=== PATIENT | female | born 1955 | race Caucasian/White ===

== ENCOUNTER 2016-10-19 12:14 | Inpatient (IN) | payer OTHER ==
--- NOTE | ~2016-10-19 | HP ---
Unit #: [id number] #: [id number] Patient: SVETLANA HEDRICK [id number] [address] [place], [place] [address] [id number] I MR#: [id number] NAME: SVETLANA HEDRICK ROOM: 236 Age: 61 Sex: F Admission Date: 10/19/2016 : 1955 Attending Physician: Tamiko Chirinos M.D. Primary Care Physician: Isidro Pro M.D. HISTORY AND PHYSICAL HISTORY OF PRESENT ILLNESS This is a 60-year-old lady last seen in August of 2015. Patient has a history of COPD and possible cystic fibrosis and possible bronchiectasis. Patient presented today with cough productive of clear sputum. She has got some interstitial changes of the lung and she also has right upper lobe infiltrates on the chest x-ray. Cough is productive of clear sputum. Patient is increasingly fatigued and so she presented to the hospital when she started quite poorly now. The EKG shows normal sinus rhythm. Lactic acid was 1.6. Therefore, she is being admitted for pneumonia. REVIEW OF SYSTEMS The review of systems is as per the history of present illness. PAST MEDICAL HISTORY Patient's past medical history is significant for questionable history of cystic fibrosis, chronic bronchitis, recurrent pneumonia, and degenerative lumbar disk disease. PAST SURGICAL HISTORY Significant for steroid injections. SOCIAL HISTORY Patient is a smoker. Quit about a year ago. Patient lives at home with her . No known polysubstance use. Patient does use prescribed chronic pain medication. FAMILY HISTORY Noncontributory. ALLERGIES Patient is allergic to NSAIDs and morphine. MEDICATIONS Home medications include: 1. Fluoxetine 40 mg twice daily. 2. Wellbutrin 150 mg daily. 3. KlonoPIN 2 mg 3 times a day. 4. Opana 10 mg 4 times daily. 5. Oxymorphone 20 mg q.a.m. and 10 mg q.h.s. 6. Flexeril 250 mg p.o. daily. PHYSICAL EXAMINATION VITAL SIGNS: T. current 97.9, pulse 82, respiratory rate 16, blood pressure 139/64, and satting 95% on 3 liters nasal cannula. Ins and outs Unit #: [id number] #: [id number] Patient: RYLEY,SVETLANA KEYLA not recorded. HEENT: Extraocular movements are intact. CHEST: Shows decreased wheezes bilaterally. NECK: Shows mild accessory muscle use. No JVD. ABDOMEN: Soft, nontender, and nondistended. EXTREMITIES: Show some edema, trace. DIAGNOSTIC STUDIES LABORATORY: The lactic acid is 1.3. Basic metabolic panel significant for elevated bili at 1.2, normal liver function tests, BUN and creatinine 7 and 0.7, glucose of 177, potassium of 3.1, and chloride of 92. White count of 12 and platelets of 157. Flu swab is negative. Cardiac enzymes negative x1. IMAGING: Chest x-ray shows chronic interstitial lung disease with right upper lobe density, which may be pneumonia. ASSESSMENT AND PLAN 1. COPD. Continue treatment with scheduled nebs. We are not going to do systemic steroids. We are going to do Pulmicort. We are going to try to get nasal swab, try to get sputum culture and see if we can find the cause of the infection. Patient denies any sort of sick contacts. 2. Chronic pain. Will restart patient's home medications. 3. Bronchiectasis. Will do scheduled nebs. If we are having difficulty expectorating, may need 3% saline nebs. Dictated by Jose G Rubi/eddie TD: 10/20/2016 06:50 JOB #: [id number] HISTORY AND PHYSICAL Page 1 of 1 X Kwasi Chirinos MD X HISTORY AND PHYSICAL
--- NOTE | ~2016-10-19 | DS ---
Unit #: [id number] #: [id number] Patient: SVETLANA HEDRICK [id number] [address] [address] [id number] I MR#: [id number] NAME: SVETLANA HEDRICK ROOM: 236 Age: 61 Sex: F Admission Date: 10/19/2016 : 1955 Discharge Date: 10/22/2016 Attending Physician: Tamiko Chirinos M.D. Primary Care Physician: Isidro Pro M.D. DISCHARGE SUMMARY ADMISSION DIAGNOSES 1. Flu. 2. Pneumonitis. 3. History of chronic obstructive pulmonary disease. 4. History of interstitial lung disease. The patient states that she appears to have some mild bronchiectasis. The patient presented with cough with productive sputum, increasing dyspnea, increasing fatigue, increasing oxygen requirements. The patient has a history of A-fib but is in sinus rhythm. Therefore, she was admitted for treatment. HOSPITAL COURSE Chronic obstructive pulmonary disease exacerbation with probable pneumonia: The patient was placed on azithromycin and Rocephin. The patient is improved, switched to Omnicef and oral azithromycin to finish course. Nasal viral swab shows flu: Patient placed on five days, 75 mg b.i.d. of oseltamivir. Interstitial lung disease: The patient has not had a recent CT. We will try to re-order a CT scan done here in the next week or so. The patient is to follow up with [facility]. Glucoses appear stable. Dietary as tolerated. Activity as tolerated. Thank you for allowing us to participate in the care of this patient. Dictated by... Jose G Rubi/anni TD: 10/24/2016 07:42 JOB #: [id number] Unit #: [id number] #: [id number] Patient: SVETLANA HEDRICK DISCHARGE SUMMARY Page 1 of 1 X Kwasi Chirinos MD X DISCHARGE SUMMARY
--- NOTE | ~2016-10-19 | EKG ---
PATIENT: SVETLANA HEDRICK UNIT #: [id number] Ventricular Rate: 89 BPM Atrial Rate: 89 BPM P-R Interval: 142 ms QRS Duration: 94 ms Q-T Interval: 388 ms QTC Calculation(Bezet): 472 ms P [place]: 57 degrees Calculated R [place]: -6 degrees Calculated T [place]: 48 degrees Diagnosis Line: Normal sinus rhythm Diagnosis Line: Minimal voltage criteria for LVH, may be normal Diagnosis Line: variant Diagnosis Line: Borderline ECG Diagnosis Line: When compared with ECG of 14-AUG-2015 18:17, Diagnosis Line: T wave inversion no longer evident in Inferior Diagnosis Line: leads Diagnosis Line: Nonspecific T wave abnormality no longer evident Diagnosis Line: in Anterolateral leads Diagnosis Line: Confirmed by ANGLE ABRAHAM MD ([id number]) on Diagnosis Line: 10/20/2016 4:27:34 PM INTERPRETING MD: LEIGH ANGELES
--- NOTE | ~2016-10-19 | DS ---
Unit #: [id number] #: [id number] Patient: SVETLANA HEDRICK [id number] [address] [address] [id number] I MR#: [id number] NAME: SVETLANA HEDRICK ROOM: 236 Age: 61 Sex: F Admission Date: 10/19/2016 : 1955 Discharge Date: 10/22/2016 Attending Physician: Tamiko Chirinos M.D. Primary Care Physician: Isidro Pro M.D. DISCHARGE SUMMARY ADDENDUM ADMITTING DIAGNOSES 1. Flu pneumonitis. 2. Probable community-acquired pneumonia. DISCHARGE MEDICATIONS 1. Combivent every four hours or four times a day neb. 2. Pulmicort 0.25 mg neb twice a day. 3. Flonase, one spray each nostril twice a day. 4. Bupropion 150 mg daily. 5. Fluoxetine 40 mg twice a day. 6. Nystatin 5 mg every six hours for ten days. 7. Tessalon Perles 200 mg three times daily. 8. Oseltamivir 75 mg twice daily. 9. Azithromycin 250 mg x3 day. 10. Roxicodone 10 mg every six hours p.r.n. pain. 11. Opana 10 mg p.o. q.i.d. 12. Oxymorphone 20 mg in the morning p.r.n., 10 mg in the evening p.r.n. 13. Methocarbamol 250 mg daily. Dictated by... Jose G Rubi/anni TD: 10/24/2016 07:49 JOB #: [id number] DISCHARGE SUMMARY Page 1 of 1 X Kwasi Chirinos MD X DISCHARGE SUMMARY
--- NOTE | ~2016-10-19 | CR72 ---
[facility] A Service of [facility] RADIOLOGY TEXT RESULTS PATIENT: SVETLANA HEDRICK LOCATION: [facility] : [birth year] UNIT #: [id number] AGE: [address]: Fausto Fritz MD SEX: F ORDER DR: [id number] [facility] [address] [facility]. [place], [place] [address] [id number] MR#: [id number] Acc #: [id number] NAME: SVETLANA HEDRICK : 1955 SEX: F STUDY DATE/TIME: 10/19/2016 UNIT: [facility] ROOM: STUDY DESCRIPTION: CR Chest Single View Portable Attending Physician: Fausto Fritz M.D. Ordering Physician: Fausto Fritz M.D. Primary Care Physician: No Primary Care Physician MEDICAL IMAGING REPORT This report is preliminary unless electronic signature is present EXAM Chest portable 10/19/2016 1331 hours HISTORY 61-year-old woman with shortness of air, fever and cough for 5 days. COMPARISON 08/16/2015 FINDINGS Portable upright film demonstrates normal heart size. There is bilateral hilar fullness, right greater than left, unchanged. The patient has known chronic underlying interstitial change. There is patchy airspace density suggested in the lateral right upper chest. This is been intermittently present on prior studies and is concerning for superimposed infection. No definite effusions. IMPRESSION Patient has known chronic interstitial lung disease with suggestion of patchy increase in density in the right upper lung. This could represent superimposed pneumonia or edema. No definite effusion. STAT * RESULT Dictated by... Addie Ruelas M.D. THIS IS AN ELECTRONICALLY VERIFIED REPORT Addie Ruelas M.D. at 10/19/2016 2:26 PM ANKUR/charo [facility] A Service of [facility] RADIOLOGY TEXT RESULTS PATIENT: SVETLANA HEDRICK LOCATION: [facility] : [birth year] UNIT #: [id number] AGE: [address]: Fausto Fritz MD SEX: F ORDER DR: TD: 10/19/2016 13:52 JOB #: [id number] MEDICAL IMAGING REPORT Page 1 of 1 COPY
[~2016-10-19 12:14] MED LIST: BACTRIM DS TABL1 TA1 PO; BENZONATATE PO; DIAZEPAM PO; FLONASE 0.05% N16 G1; FLUCONAZOLE200 M1 PO; GRALISE600 MG PO; KLONOPIN PO; KLONOPIN1 MG PO; KLONOPIN2 MG PO; NYSTATIN5 ML PO; OMNICEF300 MG PO; OPANA ER10 M1 PO; OPANA10 MG PO; OXYCODONE HCL15 MG PO; OXYCONTIN PO; PERCOCET10 PO; PHENERGAN12.5 MG PO; PREDNISONE10 MG/DOSE PO; PROZAC PO; PROZAC40 MG PO; WELLBUTRIN PO; WELLBUTRIN XL150 M1 PO; ZITHROMAX600 MG PO; ZOLOFT
[2016-10-19 13:48] LABS: POC - CKMB <1.0 ng/mL (0.0-7.9); POC - TROPONIN <0.05 ng/mL (<=0.05)
[2016-10-19] MEDS ORDERED: FLUOXETINE HCL40 M1 PO (13:55)
[2016-10-19] MEDS ORDERED: WELLBUTRIN SR150 M1 PO (13:56)
[2016-10-19] MEDS ORDERED: CLONAZEPAM2 MG PO (14:00)
[2016-10-19] MEDS ORDERED: OPANA10 MG PO (14:01)
[2016-10-19] MEDS ORDERED: OXYMORPHONE HCL20 MG PO (14:01)
[2016-10-19] MEDS ORDERED: OXYMORPHONE HCL10 M1 PO (14:02)
[2016-10-19] MEDS ORDERED: ROBAXIN PO (14:02)
[2016-10-19 14:04] LABS: BASOPHIL% 0.2 % (0-2.5); EOSINOPHIL# 0.1 X10e3 (0-0.7); EOSINOPHIL% 0.9 % (0.0-7.0); HEMATOCRIT 38.9 % (35.0-45.0); HEMOGLOBIN 12.7 gm/dL (12.0-16.0); LYMPHOCYTE% 8.1 % (17.0-45.0); MEAN CELL VOLUME 90.7 FL (83-96); MEAN CORPUSCULAR HEMOGLOBIN 29.6 PG (28-34); MEAN CORPUSCULAR HGB CONC 32.6 g/dL (30-36); MEAN PLATELET VOLUME 8.1 FL (6.5-11.5); MONOCYTE# 0.4 X10e3 (0-1.0); MONOCYTE% 3.3 % (3.0-12.0); NEUTROPHIL# 10.5 X10e3 (1.5-7.1); NEUTROPHIL% 87.5 % (40-75); PLATELET COUNT 157 X10e3 (140-420); RED BLOOD COUNT 4.29 X10e (3.90-5.30); RED CELL DISTRIBUTION WIDTH 13.4 % (11.0-15.5)
[2016-10-19 14:08] LABS: DIFF IND NO
[2016-10-19 14:26] LABS: INFLUENZA A NEG (NEG); INFLUENZA B NEG (NEG)
[2016-10-19 14:51] LABS: ALBUMIN SERUM 3.8 g/dL (3.5-5.0); BILIRUBIN, DIRECT 0.4 mg/dL (0.0-0.2); BILIRUBIN,INDIRECT 0.8 mg/dL (0.0-0.9); BILIRUBIN,TOTAL 1.2 mg/dL (0.2-2.0); CALCIUM SERUM 8.2 mg/dL (8.4-10.2); CREATININE SERUM 0.7 mg/dL (0.6-1.4); GLOM FILT RATE Estimated 92.2 mL/min (>60); POTASSIUM 3.1 mmol/L (3.5-5.1); PROTEIN TOTAL SERUM 7.4 g/dL (6.0-8.3)
[2016-10-20 14:26] LABS: BASOPHIL% 0.1 % (0-2.5); HEMOGLOBIN 12.6 gm/dL (12.0-16.0); LYMPHOCYTE# 1.3 X10e3 (1.0-3.5); LYMPHOCYTE% 9.7 % (17.0-45.0); MEAN CORPUSCULAR HEMOGLOBIN 29.4 PG (28-34); MEAN CORPUSCULAR HGB CONC 32.3 g/dL (30-36); MONOCYTE# 0.7 X10e3 (0-1.0); NEUTROPHIL# 11.3 X10e3 (1.5-7.1); NEUTROPHIL% 85.2 % (40-75); PLATELET COUNT 189 X10e3 (140-420); RED BLOOD COUNT 4.29 X10e (3.90-5.30); RED CELL DISTRIBUTION WIDTH 13.5 % (11.0-15.5); WHITE BLOOD COUNT 13.3 X10e3 (4.0-10.5)
[2016-10-20 14:31] LABS: DIFF IND NO
[2016-10-20 15:07] LABS: CALCIUM SERUM 8.7 mg/dL (8.4-10.2); CREATININE SERUM 0.6 mg/dL (0.6-1.4); MAGNESIUM 2.2 mg/dL (1.6-3.0); PHOSPHOROUS 3.4 mg/dL (2.5-4.6); POTASSIUM 4.1 mmol/L (3.5-5.1)
[2016-10-21 05:15] LABS: HEMATOCRIT 37.1 % (35.0-45.0); MEAN CELL VOLUME 90.7 FL (83-96); MEAN CORPUSCULAR HEMOGLOBIN 29.3 PG (28-34); MEAN CORPUSCULAR HGB CONC 32.3 g/dL (30-36); MEAN PLATELET VOLUME 8.2 FL (6.5-11.5); RED BLOOD COUNT 4.08 X10e (3.90-5.30); RED CELL DISTRIBUTION WIDTH 13.6 % (11.0-15.5); WHITE BLOOD COUNT 9.2 X10e3 (4.0-10.5)
[2016-10-21 06:39] LABS: ALBUMIN SERUM 3.4 g/dL (3.5-5.0); BILIRUBIN,TOTAL 0.4 mg/dL (0.2-2.0); BUN/CREATININE RATIO 16.25; CALCIUM SERUM 8.3 mg/dL (8.4-10.2); CREATININE SERUM 0.8 mg/dL (0.6-1.4); GLOM FILT RATE Estimated 78.5 mL/min (>60); POTASSIUM 3.5 mmol/L (3.5-5.1); PROTEIN TOTAL SERUM 6.7 g/dL (6.0-8.3)
[2016-10-22 07:34] LABS: ALBUMIN SERUM 3.1 g/dL (3.5-5.0); BILIRUBIN,TOTAL 0.6 mg/dL (0.2-2.0); BUN/CREATININE RATIO 8.57; CALCIUM SERUM 8.4 mg/dL (8.4-10.2); CREATININE SERUM 0.7 mg/dL (0.6-1.4); GLOM FILT RATE Estimated 92.2 mL/min (>60); POTASSIUM 3.7 mmol/L (3.5-5.1); PROTEIN TOTAL SERUM 6.1 g/dL (6.0-8.3)
[2016-10-22] MEDS ORDERED: OMNICEF300 MG PO (19:17)
[2016-10-22] MEDS ORDERED: TAMIFLU75 M1 PO (19:18)
[2016-10-22] MEDS ORDERED: AZITHROMYCIN250 MG PO (19:18)
[2016-10-22] MEDS ORDERED: BENZONATATE PO (19:19)
[2016-10-22] MEDS ORDERED: NILSTAT PO (19:20)
[2016-10-22] MEDS ORDERED: FLONASE ALLERG9.9 ML (19:21)
[2016-10-22] MEDS ORDERED: BUDESONIDE0.5 MG/2 M INH (19:22)
[2016-10-22] MEDS ORDERED: COMBIVENT U/D3 M1 INH (19:23)
[2016-11-21] MEDS ORDERED: OPANA ER10 M1 PO (14:47)
[2016-11-21] MEDS ORDERED: MELATONIN10 M1 PO (14:49)
[2016-11-21] MEDS ORDERED: KLONOPIN2 MG PO (14:49)
== END 2016-10-22 19:43 | disposition home or self-care (01) | DRG 189 ==
LOC: CED 12:14 → CEDOF 16:00 → CED 16:52 → CEDOF 16:52 → C2A 20:02
PROVIDERS: Emergency Medicine; Internal Medicine Pulmonary Disease
DX: J96.20 Acute and chronic respiratory failure, unspecified whether with hypoxia or hypercapnia (principal); E84.9 Cystic fibrosis, unspecified; J11.00 Influenza due to unidentified influenza virus with unspecified type of pneumonia; J18.9 Pneumonia, unspecified organism; I48.91 Unspecified atrial fibrillation; J44.1 Chronic obstructive pulmonary disease with (acute) exacerbation; J44.0 Chronic obstructive pulmonary disease with (acute) lower respiratory infection; M51.36 Other intervertebral disc degeneration, lumbar region; Z87.891 Personal history of nicotine dependence; G89.29 Other chronic pain; Z87.01 Personal history of pneumonia (recurrent)
CPT/HCPCS: 36415; 71010; 80048; 80053; 80076; 82308; 82553; 82947; 83605; 83735; 84100; 84484; 85025; 85027; 87040; 87070; 87077; 87186; 87205; 87449; 87633; 87804; 93005; 94640; 94760; 96374; 97161; 99285; G8978-GP; G8979-GP; G8980-GP; J0456; J0696; J1650; J2405; J2930

== ENCOUNTER → 2016-11-22 | Day surgery (SDC) | payer OTHER ==
[~2016-11-22] MED LIST changes: +AZITHROMYCIN250 MG PO; +BUDESONIDE0.5 MG/2 M INH; +CLONAZEPAM2 MG PO; +COMBIVENT U/D3 M1 INH; +FLONASE ALLERG9.9 ML; +FLUOXETINE HCL40 M1 PO; +MELATONIN10 M1 PO; +NILSTAT PO; +OXYMORPHONE HCL10 M1 PO; +OXYMORPHONE HCL20 MG PO; +ROBAXIN PO; +TAMIFLU75 M1 PO; +WELLBUTRIN SR150 M1 PO
--- NOTE | ~2016-11-22 | OR ---
Unit #: [id number] #: [id number] Patient: SVETLANA HEDRICK [id number] [address] [place], [place] [address] [id number] O MR#: [id number] NAME: SVETLANA HEDRICK ROOM: Date of Procedure: 11/22/2016 Admission Date: 11/22/2016 Surgeon: Valdemar Delarosa M.D. : 1955 Attending Physician: Valdemar Delarosa M.D. Primary Care Physician: Isidro Pro M.D. OPERATIVE REPORT PREOPERATIVE DIAGNOSES Back pain, radiculopathy, degenerative lumbar disk disease. POSTOPERATIVE DIAGNOSES Back pain, radiculopathy, degenerative lumbar disk disease. PROCEDURE PERFORMED Lumbar epidural steroid injection with intravenous sedation and fluoroscopic guidance for needle localization. INDICATIONS FOR PROCEDURE The patient is a 61-year-old female with significant return of back and lower extremity pain associated with nonsurgical degenerative disk disease. She treated medically and p.r.n. epidural steroid injections. Last injection was done 15 months ago. She did very well until recently. She had re-flare of the pain, which is not settle with conservative measures. So, plan is to repeat an epidural steroid injection today. DESCRIPTION OF PROCEDURE The patient was placed in a seated position. Standard monitors were applied. 2 mg of Versed were given for sedation and anxiolysis, which were adequate. Vital signs remained stable. Sterile prep and drape then of lumbar area was performed. The skin then at the L4-L5 level was localized with 1% lidocaine. An 18-gauge Hustead needle was then advanced via loss of resistance technique and fluoroscopic guidance in toward the epidural space. After confirming proper positioning with fluoroscopy and radiographic contrast, 80 mg of Depo-Medrol and 4 mL of preservative-free normal saline were deposited. The patient tolerated the procedure well and was discharged. Dictated by... Valdemar Delarosa M.D. LHP/modl TD: 11/23/2016 02:28 JOB #: [id number] Unit #: [id number] #: [id number] Patient: SVETLANA HEDRICK OPERATIVE REPORT Page 1 of 1 X Valdemar Delarosa MD X PROCEDURE OPERATIVE NOTE
== END | disposition home or self-care (01) ==
LOC: CCSC 11:26
DX: M51.16 Intervertebral disc disorders with radiculopathy, lumbar region (principal)
CPT/HCPCS: J1040; J2250